=== PATIENT | male | born 1985 | race Caucasian/White ===

== ENCOUNTER 2016-09-29 20:43 | Emergency (ER) | payer SELFPAY ==
--- NOTE | 2016-09-29 21:08 | ED Physician Documentation ---
General Adult - HISTORIAN Historian: patient - HPI Stated Complaint: pink eye Chief Complaint: General Adult Onset: hours Timing: still present Severity: moderate Further Comments: yes (Pt is a 30 yo male with L eye redness. Pt says he left his contact lenses in for more than a week. He developed L eye redness today. Eye is irritated and itchy, he says. No increase pain with looking into light.) - ROS CONST: no problems EYES/ENT: other (L eye redness/irritation) CVS/RESP: none GI/: none MS/SKIN/LYMPH: none - PAST HX Past History: none Other History: none Allergies/Adverse Reactions: Allergies Allergy/AdvReac Type Severity Reaction Status Date / Time codeine Allergy Severe Tremors Verified 09/29/16 21:32 - SOCIAL HX Smoking History: cigarettes - FAMILY HX Family History: No - VITAL SIGNS Vital Signs: Vital Signs Temp Pulse Resp BP Pulse Ox 135/87 12/14/15 22:42 - REVIEWED ASSESSMENTS Nursing Assessment Reviewed: Yes Vitals Reviewed: Yes Progress - Progress Progress: Rx Gentamicin 0.3% ophthalmic. 1-2 drops in both eyes three times daily. 1st dose in ER. ED Results Lab/Radiology - Orders Orders: ED Orders Category Date Time Status Tobramycin Med 09/29/16 21:06 Once 1 ml OP QD ONE General Adult Physical Exam - PHYSICAL EXAM GENERAL APPEARANCE: mild distress EENT: other (L conjunctival injection; PERRLA) RESPIRATORY: no resp distress SKIN: warm/dry, normal color EXTREMITIES: normal range of motion NEURO: oriented X3 Discharge Clincal Impression: Conjunctivitis Qualifiers: Conjunctivitis type: acute Acute conjunctivitis type: unspecified Laterality: left Qualified Code(s): H10.32 - Unspecified acute conjunctivitis, left eye Referrals: Primary Doctor,No [Primary Care Provider] - Condition: Good Disposition: 01 HOME, SELF-CARE Decision to Admit: NO Decision Time: 21:30
[2016-09-29] MEDS ORDERED: PHARMACY KEY 1 EACH EACH MC ONE (21:34)
[2016-09-29] MEDS ORDERED: GENTAMICIN SULFATE 0.3% OPTH SOL OP ONE (21:38)
[2016-09-29] MEDS: TOBRAMYCIN OP ONE ×2 (21:41→21:43)
[2016-09-29 22:53] VITALS: BP 145/87
== END 2016-09-29 21:48 | disposition home or self-care (01) ==
LOC: ED 20:43
DX: H10.32 Unspecified acute conjunctivitis, left eye (principal)
CPT/HCPCS: 99282

== ENCOUNTER 2016-10-02 19:09 | Emergency (ER) | payer SELFPAY ==
[2016-10-02 19:30] VITALS: BP 141/88
[2016-10-02] MEDS ORDERED: POLYMYXIN B SULF/TRIMETHOPRIM OPHTHALMIC DROPS OP ONE (19:41)
--- NOTE | 2016-10-02 19:50 | ED Physician Documentation ---
Eye Problem - HISTORIAN Historian: patient - HPI Stated Complaint: left eye pain Chief Complaint: Eye Problems Additional Information: Seen in ER 09/29 with conjunctivitis OS; started Gentamycin 0.3%ophth gtts. Better for 24 hours, then left eye became more painful. No change in vision. Associated symptoms: burining, itching, redness Apparent Injury: no - ROS CONST: no problems - PAST HX Past History: none Allergies/Adverse Reactions: Allergies Allergy/AdvReac Type Severity Reaction Status Date / Time codeine Allergy Severe Tremors Verified 10/02/16 19:24 Home Medications: Ambulatory Orders Medication Instructions Recorded NK [NK] 10/02/16 - SOCIAL HX Smoking History: non-smoker - FAMILY HX Family History: no significant history - VITAL SIGNS Vital Signs: Vital Signs Temp Pulse Resp BP Pulse Ox 98.2 F 93 H 16 141/88 97 10/02/16 19:10 10/02/16 19:10 10/02/16 19:10 10/02/16 19:10 10/02/16 19:10 - REVIEWED ASSESSMENTS Nursing Assessment Reviewed: Yes Vitals Reviewed: Yes ED Results Lab/Radiology - Orders Orders: ED Orders Category Date Time Status Polymyxin B Sulf/Trimethoprim [Polytrim] Med 10/02/16 19:41 Once 3 drop OP NOW ONE Eye Problem Physical Exam - Physical Exam General Appearance: alert, mild distress Examined with Slit Lamp: No Eyelids: nml inspection. No: foreign body under eyelid (R), foreign body under eyelid (L) Conjunctiva and Sclera: injected (L) Corneas: nml inspection EOM: intact Pupils: equal Head/ENT: nml inspection. No: swelling Skin: nml color, warm, skin intact Neck/Back: nml inspection Respiratory: no resp distress Neuro/Psych: neuro intact Discharge Clincal Impression: Conjunctivitis Qualifiers: Conjunctivitis type: other mucopurulent Laterality: left Qualified Code(s): H10.022 - Other mucopurulent conjunctivitis, left eye Additional Instructions: Stop the gentamycin eye drops. If you are not better in 36 hours, return to the ER or see your provider. Home Medications: Ambulatory Orders NK [NK] 10/02/16 Condition: Good Disposition: HOME, SELF-CARE Decision to Admit: NO Decision Time: 19:55
== END 2016-10-02 20:07 | disposition home or self-care (01) ==
LOC: ED 19:09
DX: H10.022 Other mucopurulent conjunctivitis, left eye (principal)
CPT/HCPCS: 99282

== ENCOUNTER 2016-10-24 22:55 | Emergency (ER) | payer SELFPAY ==
[2016-10-24 23:12] VITALS: BP 129/85
--- NOTE | 2016-10-24 23:16 | ED Physician Documentation ---
General Adult - HISTORIAN Historian: patient - HPI Stated Complaint: Noticed swelling/mass to base of penile shaft Chief Complaint: Male Urogenital Problems Additional Information: 30 yo M here for 3-4 days swelling at the base of penis, superior scrotum. States no penile discharge, ulcers. No STD history. No new partners. Is homosexual and participates in anal intercourse. No f/c/n/v. States seems to have happened after shaving a few days ago. No diff with urination, BM. No dysuria, hematuria All other systems reviewed and negative. Onset: days ago - ROS CONST: no problems EYES/ENT: none CVS/RESP: none GI/: other (penile, scrotal swelling. ) MS/SKIN/LYMPH: none NEURO/PSYCH: denies: headache - PAST HX Past History: none Other History: none Surgeries/Procedures: none Immunizations: UTD Allergies/Adverse Reactions: Allergies Allergy/AdvReac Type Severity Reaction Status Date / Time No Known Allergies Allergy Verified 10/24/16 23:14 Home Medications: Ambulatory Orders Medication Instructions Recorded NK [NK] 10/02/16 - SOCIAL HX Smoking History: non-smoker Alcohol Use: none Drug Use: none - FAMILY HX Family History: No - VITAL SIGNS Vital Signs: Vital Signs Temp Pulse Resp BP Pulse Ox 98.5 F 90 18 129/85 96 10/24/16 22:56 10/24/16 22:56 10/24/16 22:56 10/24/16 22:56 10/24/16 22:56 - REVIEWED ASSESSMENTS Nursing Assessment Reviewed: Yes Vitals Reviewed: Yes General Adult Physical Exam - PHYSICAL EXAM GENERAL APPEARANCE: no distress EENT: ENT inspection normal, pharynx normal, TM's nml NECK: normal inspection. No: lymphadenopathy RESPIRATORY: no resp distress, chest non-tender, breath sounds normal CVS: reg rate & rhythm, heart sounds normal, equal pulses, no murmur ABDOMEN: soft, no organomegaly, normal bowel sounds, no distension, non-tender, other (there is mild swelling and erythema at the superior scrotum where it meets the penile shaft. There is an area of induration with some desquamation appearing as it might have been draining but no current fluctuance. No penile lesions, discharge. No hernia. ). No: tenderness EXTREMITIES: non-tender, no evidence of injury NEURO: oriented X3 Discharge Clincal Impression: Cellulitis Qualifiers: Site of cellulitis: trunk Site of cellulitis of trunk: groin Qualified Code(s) : L03.314 - Cellulitis of groin Referrals: Primary Doctor,No [Primary Care Provider] - 2 Days Home Medications: Ambulatory Orders NK [NK] 10/02/16 Comments: mild cellulitis in scrotal region, likely from ingrown hair 2/2 shaving. No h/o DM. No fluctuance or drainable abscess. Condition: Good Disposition: 01 HOME, SELF-CARE Decision to Admit: NO Decision Time: 23:19
== END 2016-10-24 23:30 | disposition home or self-care (01) ==
LOC: ED 22:55
DX: L03.314 Cellulitis of groin (principal)
CPT/HCPCS: 99283

== ENCOUNTER 2016-12-18 20:48 | Emergency (ER) | payer SELFPAY ==
[2016-12-18] MEDS ORDERED: IPRATROPIUM/ALBUTEROL SULFATE 3 ML AMPUL.NEB NEB ONE ×2 (21:03→21:07)
--- NOTE | 2016-12-18 21:10 | ED Physician Documentation ---
Upper Respiratory Symptoms - HISTORIAN Historian: patient - HPI Chief Complaint: Cough/ Upper Respiratory Additional Information: x3 days with chills, stuffy nose, diff breathing, exersional dyspnea. taking mucinex Onset: days ago Duration: constant Context: denies: recent foreign travel, multiple patients Severity: mild Associated Symptoms: chills, sweating, runny nose, sinus drainage, shortness of breath, hurts to breathe Worsened by Deep Breath: Yes Further Comments: no - ROS CONST/EYES: denies: weakness CVS/RESP: shortness of breath LYMPH: denies: leg swelling GI/: none NEURO/PSYCH: denies: fainting, dizziness MS/SKIN: denies: joint pain - PAST HX Lung Disease: none PE Risk Factors: none Surgeries/Procedures: none Immunizations: UTD Allergies/Adverse Reactions: Allergies Allergy/AdvReac Type Severity Reaction Status Date / Time No Known Allergies Allergy Verified 12/18/16 21:00 Home Medications: Ambulatory Orders Medication Instructions Recorded Omeprazole [Prilosec] 20 mg PO DAILY 12/18/16 - SOCIAL HX Smoking History: non-smoker Alcohol Use: none Drug Use: none - FAMILY HX Family History: none - VITAL SIGNS Vital Signs: Vital Signs Temp Pulse Resp BP Pulse Ox 98.9 F 92 H 24 136/66 92 12/18/16 21:01 12/18/16 21:01 12/18/16 21:01 12/18/16 21:01 12/18/16 21:01 - REVIEWED ASSESSMENTS Nursing Assessment Reviewed: Yes Vitals Reviewed: Yes ED Results Lab/Radiology - Radiology Radiology Impressions: cxr neg - Orders Orders: ED Orders Category Date Time Status CHEST 2 VIEW [CHEST P.A.&LAT 2 VIEWS] [RAD] Stat Exams 12/18/16 21:08 Taken Ipratropium/Albuterol Sulfate [Duoneb] Med 12/18/16 21:03 Discontinued 3 ml NEB .STK-MED ONE Ipratropium/Albuterol Sulfate [Duoneb] Med 12/18/16 21:07 Discontinued 3 ml NEB NOW ONE Upper Respiratory Symptoms - EXAM General Appearance: no acute distress, alert EENT: nml ENT inspection, pharynx nml. No: pharyngeal erythema Neck: normal inspection Respiratory: no resp. distress, wheezes. No: prolonged expirations, accessory muscle use Abdomen: non-tender CVS: reg rate & rhythm Skin: color nml, no rash Extremities: non-tender Neuro/Psych: oriented x3, mood/affect nml Discharge Clincal Impression: URI (upper respiratory infection) Qualifiers: URI type: unspecified URI Qualified Code(s): J06.9 - Acute upper respiratory infection, unspecified Home Medications: Ambulatory Orders Omeprazole [Prilosec] 20 mg PO DAILY 12/18/16 Condition: Good Disposition: 01 HOME, SELF-CARE Decision to Admit: NO Date of Decison to Admit: 12/18/16 Decision Time: 21:38
[2016-12-18 21:15] VITALS: BP 136/66
[2016-12-18] MEDS ORDERED: Lidocaine 1% 5ml(IM or SUTURE)(PAIN CLINIC) ONE (21:46)
[2016-12-18] MEDS ORDERED: cefTRIAXone SODIUM 1 GM VIAL ONE (21:46)
--- NOTE | 2016-12-19 06:38 | Diagnostic Imaging Report ---
~ Report Submission Date: Dec 18, 2016 9:28:31 PM CDT Patient ~ Study Name: JUSTINA BARBOSA ~ Date: Dec 18, 2016 9:16:16 PM CDT ~ Modality Type: CR Gender: M ~ Description: CHEST : 87 ~ Institution: [facility] Physician: TALAT DELUNA ~ ~ ~ ~ Chest, PA and lateral History: Cough Findings: No infiltrate, effusion or pneumothorax is present. Heart size, mediastinum and pulmonary vascularity are normal. Since 17 April 2015, no significant change has occurred. Impression: No active disease. ~ Electronically signed on Dec 18, 2016 9:28:31 PM CDT by: Christopher DARDEN
== END 2016-12-18 21:57 | disposition home or self-care (01) ==
LOC: ED 20:48
DX: J06.9 Acute upper respiratory infection, unspecified (principal)
CPT/HCPCS: 71020; J0696; 96372; 99283

== ENCOUNTER 2017-03-17 01:10 | Emergency (ER) | payer SELFPAY ==
[2017-03-17] MEDS: 0.9 % SODIUM CHLORIDE 1,000 ML IV ONE (01:25)
[2017-03-17] MEDS: KETOROLAC TROMETHAMINE 30 MG/1ML VIAL IVP ONE (01:25)
[2017-03-17] MEDS: ONDANSETRON HCL/PF 4 MG/ 2ML VIAL IVP ONE (01:25)
[2017-03-17 01:34] LABS: BASOPHILS % 0.6 (0.0-1.5); MEAN CORPUSCULAR HEMOGLOBIN 31.7 pg (28.0-34.0); MEAN CORPUSCULAR VOLUME 91.2 fl (80.0-100.0)
[2017-03-17] MEDS ORDERED: fentaNYL CITRATE/PF 100 MCG/ 2ML AMP ONE (01:46)
[2017-03-17 01:47] LABS: eGFR (African) > 60; eGFR (Non-African) > 60
[2017-03-17] MEDS: fentaNYL CITRATE/PF 100 MCG/ 2ML AMP IVP ONE (01:50)
--- NOTE | 2017-03-17 01:53 | ED Physician Documentation ---
Abdominal Pain - HISTORIAN Historian: patient - HPI Stated Complaint: right flank pain Chief Complaint: Abdominal Pain Onset: days ago (3) Timing: worse Context: denies: out of country travel, bad food, recent trauma Severity: severe Quality: pain Associated Symptoms: fever, nausea, vomiting. denies: diarrhea Exacerbated by: nothing Relieved by: nothing Further Comments: yes (31 year old male patient presents with 3 day history of abdominal pain with nausea, vomiting, fever and chills. Reports pain is worse in right middle quad.) - ROS CONST: no problems GI/: none CVS/RESP: none EYES/ENT: none MS/SKIN/LYMPH: none NEURO/PSYCH: none - SOCIAL HX Smoking History: cigarettes - FAMILY HX Family History: denies: none - PAST HX Past History: none Ischemic Bowel Risk Factors: none Other History: none Home Medications: Ambulatory Orders Medication Instructions Recorded NK [NK] 03/17/17 Allergies/Adverse Reactions: Allergies Allergy/AdvReac Type Severity Reaction Status Date / Time codeine Allergy Severe Throat Verified 03/17/17 01:41 Swelling - VITAL SIGNS Vital Signs: Vital Signs Temp Pulse Resp BP Pulse Ox 100.8 F H 91 H 16 137/72 96 03/17/17 01:10 03/17/17 01:10 03/17/17 01:10 03/17/17 01:10 03/17/17 01:10 - REVIEWED ASSESSMENTS Nursing Assessment Reviewed: Yes Vitals Reviewed: Yes Progress - Progress Progress: BM yesterday Lipase and lactate send out, will defer at this time. ED Results Lab/Radiology - Lab Results Lab Results: Lab Results 03/17/17 01:25 Sodium 138 mmol/L mmol/L (136-145) Potassium 3.9 mmol/L mmol/L (3.5-5.0) Chloride 100 mmol/L mmol/L (98-110) Carbon Dioxide 24 mmol/L mmol/L (20-32) BUN 16 mg/dL mg/dL (10-26) Creatinine 1.0 mg/dL mg/dL (0.4-1.5) Estimated Creat Clear 18 Est GFR ( Amer) > 60 (60 - ) Est GFR (Non-Af Amer) > 60 (60 - ) Glucose 116 mg/dL H mg/dL (70-99) Calcium 9.7 mg/dL mg/dL (8.5-10.5) Total Bilirubin 0.3 mg/dL mg/dL (0.2-1.2) AST 26 U/L U/L (0-41) ALT 35 U/L U/L (0-45) Alkaline Phosphatase 59 U/L U/L (46-116) Total Protein 7.1 g/dL g/dL (6.0-8.5) Albumin 4.9 g/dL g/dL (3.0-5.5) - Radiology Radiology Impressions: CT of the abdomen and pelvis without contrast Clinical history: Abdominal and right flank pain. Technique: CT of the abdomen and pelvis is performed without oral or intravenous administration of contrast. Sagittal and coronal reconstructions are performed by the technologist. Findings: The visualized lung bases are clear. Liver and spleen demonstrate normal attenuation without focal defect. The gallbladder is contracted. There is no pancreatic or adrenal abnormality. The kidneys are of normal size, shape and position. There are small retroperitoneal nodes but no significant adenopathy. The appendix is visualized and is within normal limits. The bladder is unremarkable. There is no evident bladder or ureteral calculus and no hydronephrosis. Impression: 1. Negative noncontrast study. - Orders Orders: ED Orders Category Date Time Status CT ABD & PELVIS W/O CON Stat Exams 03/17/17 Taken CBC/PLATELET/DIFF Stat Lab 03/17/17 01:25 Received CMP Stat Lab 03/17/17 01:25 Completed UA W/MICRO IF INDICATED Stat Lab 03/17/17 01:22 Ordered 0.9 % Sodium Chloride [Normal Saline] 1,000 ml Med 03/17/17 01:22 Discontinued IV NOW Ketorolac Tromethamine [Toradol] Med 03/17/17 01:22 Discontinued 30 mg IVP NOW ONE Ondansetron HCl/Pf [Zofran 4 mg/2 ml] Med 03/17/17 01:22 Discontinued 4 mg IVP NOW ONE fentaNYL CITRATE/PF [Duragesic] Med 03/17/17 01:46 Discontinued 100 mcg .ROUTE .STK-MED ONE fentaNYL CITRATE/PF [Duragesic] Med 03/17/17 01:46 Discontinued 50 mcg IVP NOW ONE Abdominal Pain Physical Exam - Physical Exam General Appearance: moderate distress EENT: eye inspection normal, JARRET RESPIRATORY: no resp distress, chest non-tender, breath sounds normal CVS: reg rate & rhythm, heart sounds normal, equal pulses, no murmur, no gallop , PMI nml, no JVD, no friction rub, 24 ABDOMEN: soft, no organomegaly, normal bowel sounds, no abdominal bruit, decreased BS (right quads), McBurney's point tenderne, distended (left lower and upper quad), other (positive Woodard's ) SKIN: normal color, warm/dry, NR, INT, PAL, DR EXTREMITIES: non-tender, normal range of motion, no evidence of injury, no edema , J, 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 X3, CN's nml as tested, motor nml, sensation nml Vital Signs: Vital Signs Temp Pulse Resp BP Pulse Ox 100.8 F H 91 H 16 137/72 96 03/17/17 01:10 03/17/17 01:10 03/17/17 01:10 03/17/17 01:10 03/17/17 01:10 Discharge Clincal Impression: Abdominal pain Qualifiers: Abdominal location: right lower quadrant Qualified Code(s): R10.31 - Right lower quadrant pain Nausea & vomiting Qualifiers: Vomiting type: unspecified Vomiting Intractability: non-intractable Qualified Code(s): R11.2 - Nausea with vomiting, unspecified Constipation Qualifiers: Constipation type: unspecified constipation type Qualified Code(s): K59.00 - Constipation, unspecified Referrals: [Primary Care Provider] - 2 Days Additional Instructions: Diet: Clear liquids Sprite/7-up Juices apple, white grape Gatorade/Powerade Jello Popsicles When tolerating clear liquids, advance to bland diet - such as crackers , rice, bananas or toast Return to the emergency department or call your doctor, if you are having severe abdominal pain, fever >101.0, or if there is blood in the vomit or diarrhea, or you cannot keep down liquids or solid food. Fever: Use Tylenol or Ibuprofen as needed per package directions Tylenol 500mg po q4h prn pain Ibuprofen 800mg po TID prn pain - do not take for more than 4 days. Home Medications: Ambulatory Orders NK [NK] 03/17/17 Condition: Stable Disposition: 01 HOME, SELF-CARE Decision to Admit: NO Decision Time: 02:12
--- NOTE | 2017-03-17 02:07 | Diagnostic Imaging Report ---
DEENA ADAME (DEUCE) - ER [facility] [address] [facility] [address] [place], [place]. [address] Report Submission Date: Mar 17, 2017 2:05:23 AM CDT Patient Study Name: JUSTINA BARBOSA Date: Mar 17, 2017 1:48:28 AM CDT Modality Type: CT\SR Gender: M Description: CT ABD & PELVIS W/O CO : 89 Institution: [facility] Physician: DEENA ADAME) - ER CT of the abdomen and pelvis without contrast Clinical history: Abdominal and right flank pain. Technique: CT of the abdomen and pelvis is performed without oral or intravenous administration of contrast. Sagittal and coronal reconstructions are performed by the technologist. Findings: The visualized lung bases are clear. Liver and spleen demonstrate normal attenuation without focal defect. The gallbladder is contracted. There is no pancreatic or adrenal abnormality. The kidneys are of normal size, shape and position. There are small retroperitoneal nodes but no significant adenopathy. The appendix is visualized and is within normal limits. The bladder is unremarkable. There is no evident bladder or ureteral calculus and no hydronephrosis. Impression: 1. Negative noncontrast study. Electronically signed on Mar 17, 2017 2:05:23 AM CDT by: Lucien DARDEN
[2017-03-17] MEDS: MAGNESIUM HYDROXIDE 400 MG/5 ML 30ML UDC PO ONE (02:17)
[2017-03-17 02:29] VITALS: BP 106/59
[2017-03-17 04:32] LABS: EOSINOPHILS % 2.4 % (0.0-6.8); MONOCYTES % 4.7 % (0.0-11.0); NEUTROPHILS # 5.3 # k/uL (1.4-7.7)
[2017-03-17 06:01] LABS: APPEARANCE,URINE CLEAR (CLEAR); COLOR,URINE YELLOW (YELLOW); OCCULT BLOOD,URINE NEGATIVE (NEGATIVE); PH URINE 5.5 (5.0 - 8.0); UROBILINOGEN URINE 0.2 Eu (0.2-1.0)
== END 2017-03-17 02:20 | disposition home or self-care (01) ==
LOC: ED 01:10
DX: R10.31 Right lower quadrant pain (principal); R11.2 Nausea with vomiting, unspecified; K59.00 Constipation, unspecified
CPT/HCPCS: 74176; 80053; 81002; 85025; J1885; J2405; J3010; J7030; 96361; 96374; 96375; 99283; S1016

== ENCOUNTER 2017-06-07 15:17 | Emergency (ER) | payer OTHER ==
--- NOTE | 2017-06-07 15:34 | ED Physician Documentation ---
General Adult - HISTORIAN Historian: patient - HPI Stated Complaint: left third finger injury Chief Complaint: General Adult Onset: minutes Timing: still present Severity: moderate Further Comments: yes (Pt is a 31 yo male with injury to his L middle finger. Closed car door on finger last evening.) - ROS CONST: no problems EYES/ENT: none CVS/RESP: none GI/: none MS/SKIN/LYMPH: other (tenderness, swelling L middle finger) - PAST HX Past History: none Other History: none Allergies/Adverse Reactions: Allergies Allergy/AdvReac Type Severity Reaction Status Date / Time codeine Allergy Severe Throat Verified 03/17/17 01:41 Swelling Home Medications: Ambulatory Orders Medication Instructions Recorded NK [NK] 06/07/17 - SOCIAL HX Smoking History: cigarettes - FAMILY HX Family History: No - VITAL SIGNS Vital Signs: Vital Signs Temp Pulse Resp BP Pulse Ox 98.6 F 91 H 20 148/77 96 06/07/17 15:17 06/07/17 15:17 06/07/17 15:17 06/07/17 15:17 06/07/17 15:17 - REVIEWED ASSESSMENTS Nursing Assessment Reviewed: Yes Vitals Reviewed: Yes Progress - Progress Progress: X-ray L middle finger: no fracture seen. ED Results Lab/Radiology - Orders Orders: ED Orders Category Date Time Status FINGER 2 VIEWS OR MORE [RAD] Stat Exams 06/07/17 Ordered General Adult Physical Exam - PHYSICAL EXAM GENERAL APPEARANCE: mild distress NECK: normal inspection, supple RESPIRATORY: no resp distress, chest non-tender CVS: reg rate & rhythm, heart sounds normal BACK: normal inspection SKIN: other (tenderness, swelling L middle finger; FROM) EXTREMITIES: other (tenderness, swelling L middle finger; FROM) NEURO: oriented X3, motor nml, sensation nml Discharge Clincal Impression: contusion L middle finger Referrals: WILLIAM LEUNG [Primary Care Provider] - 2 Days Condition: Good Disposition: 01 HOME, SELF-CARE Decision to Admit: NO Decision Time: 16:01
[2017-06-07 15:40] VITALS: BP 148/77
--- NOTE | 2017-06-07 16:17 | Diagnostic Imaging Report ---
LEIF GARCIA~ [facility] [id number] [facility] [address] [address] ~ ~ ~ ~ Report Submission Date: Jun 07, 2017 4:02:38 PM CDT Patient ~ Study Name: JUSTINA BARBOSA ~ Date: Jun 07, 2017 3:37:00 PM CDT ~ Modality Type: CR Gender: M ~ Description: UPPER EXTREMITY : 89 ~ Institution: [facility] Physician: LEIF GARCIA ~ ~ ~ ~ Examination: Plain film finger History: Injury Comparison exams: None available Findings: 3 views the finger demonstrate normal cortical margins. No fracture.~ No dislocation. No soft tissue abnormality. Impression: No acute osseous abnormality . ~ Electronically signed on Jun 07, 2017 4:02:38 PM CDT by: Tony DARDEN
== END 2017-06-07 16:05 | disposition home or self-care (01) ==
LOC: ED 15:17
DX: S60.032A Contusion of left middle finger without damage to nail, initial encounter (principal); X58.XXXA Exposure to other specified factors, initial encounter; Y93.9 Activity, unspecified; Y99.9 Unspecified external cause status
CPT/HCPCS: 73140

== ENCOUNTER 2017-09-17 18:50 | Emergency (ER) | payer SELFPAY ==
--- NOTE | 2017-09-17 19:02 | ED Physician Documentation ---
General Adult - HISTORIAN Historian: patient - HPI Stated Complaint: hand injury at work Chief Complaint: Hand Injury Onset: hours (1) Timing: still present Severity: moderate Further Comments: yes (States his index finger of right hand was smashed in between to metal poles at work. He had on work gloves. The gloves were not broken. the area is painful .) Last known Well Code/Unknown Code: Unknown - ROS CONST: no problems - PAST HX Past History: none Other History: none Surgeries/Procedures: none Immunizations: referred to PCP Allergies/Adverse Reactions: Allergies Allergy/AdvReac Type Severity Reaction Status Date / Time codeine Allergy Severe Throat Verified 09/17/17 20:05 Swelling Home Medications: Ambulatory Orders Medication Instructions Recorded NK [NK] 06/07/17 - SOCIAL HX Smoking History: non-smoker Alcohol Use: none Drug Use: none - FAMILY HX Family History: No - VITAL SIGNS Vital Signs: Vital Signs Temp Pulse Resp BP Pulse Ox 98.2 F 91 H 16 132/85 97 09/17/17 18:50 09/17/17 18:50 09/17/17 18:50 09/17/17 18:50 09/17/17 18:50 - REVIEWED ASSESSMENTS Nursing Assessment Reviewed: Yes Vitals Reviewed: Yes Procedures Wound Location: upper extremity (right hand finger ) Wound's Depth, Shape: superficial Wound Explored: no foreign body removed Anesthesia: 2% Lidocaine Wound Debrided: moderate Wound Repaired With: sutures Suture Size/Type: 4:0 Layer Closure?: No Progress - Progress Progress: 2030: Discussed case with Dr Garner ([facility] he stated we could close wound with sutures. No need for prophylactic antibiotics if no debris. Appt with follow up plastics is Sunday09.21.2017 @[address] Herman. Keep finger clean and dry and immobilizedDG. ED Results Lab/Radiology - Orders Orders: ED Orders Category Date Time Status Cleanse with NS and Chlorhexid 1T Care 09/17/17 19:21 Active HAND 3 VIEWS OR MORE [RAD] Stat Exams 09/17/17 Ordered fentaNYL CITRATE/PF [Duragesic] Med 09/17/17 19:03 Discontinued 50 mcg IM NOW ONE General Adult Physical Exam - PHYSICAL EXAM GENERAL APPEARANCE: no distress EENT: eye inspection normal NECK: normal inspection RESPIRATORY: no resp distress, chest non-tender, breath sounds normal CVS: reg rate & rhythm, heart sounds normal, no murmur SKIN: warm/dry, normal color, other (right hand index finger 2 cm area laceration on lateral side of index finger. FROM. Pulses on hand + sensation + cap refill +) EXTREMITIES: non-tender NEURO: oriented X3, CN's nml as tested, motor nml, sensation nml, mood/affect nml Discharge Clincal Impression: Laceration Referrals: Primary Doctor,No [Primary Care Provider] - 2 Days Comments: Keep area clean and dry Keep finger immoblized Follow up with Dr Herman Sunday09.21.2017 @ 0969 [facility] Report to front office help and state here for Plastics appt with Dr Herman Phone Ibuprofen or Tylenol for pain Return to ER for any concerning symptoms Condition: Stable Disposition: 01 HOME, SELF-CARE Decision to Admit: NO Date of Decison to Admit: 09/17/17 Decision Time: 21:04
[2017-09-17] MEDS ORDERED: fentaNYL CITRATE/PF 100 MCG/ 2ML AMP IM ONE (19:03)
[2017-09-17] MEDS ORDERED: Lidocaine 2% 20ml Vial IP ONE (21:10)
[2017-09-17 21:43] VITALS: BP 129/81
--- NOTE | 2017-09-18 06:07 | Diagnostic Imaging Report ---
PAULA SHIELDS [facility] [address] [facility] [address] 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 Surgical screw at the right 5th the ip joint Impression: 1. 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
== END 2017-09-17 21:07 | disposition home or self-care (01) ==
LOC: ED 18:50
DX: S61.210A Laceration without foreign body of right index finger without damage to nail, initial encounter (principal); W23.1XXA Caught, crushed, jammed, or pinched between stationary objects, initial encounter; Y93.89 Activity, other specified; Y92.9 Unspecified place or not applicable; Y99.0 Civilian activity done for income or pay
CPT/HCPCS: 12001; 73130; 96372; 99283; J3010

== ENCOUNTER 2017-12-13 17:19 | Emergency (ER) | payer SELFPAY ==
--- NOTE | 2017-12-13 17:22 | ED Physician Documentation ---
Nausea/Vomiting/Diarrhea - HISTORIAN Historian: patient - HPI Stated Complaint: N/V/D Chief Complaint: Nausea,Vomiting,Diarrhea Onset: days ago (1) Duration: constant Last known Well Date: 12/11/17 Last Known Well Time: 23:00 Last known Well Code/Unknown Code: Unknown Timing: sudden onset Context: bad food Severity: moderate Further Comments: yes (He states he and his friend both ate at about 3 am x 2 days ago. they have both had n/v/d since. He states he has had 10 diarrhea stools today and 5 episodes of vomiting. No fever.) - Associated Symptoms Vomiting: frequent. denies: bloody, blood-streaked Diarrhea: copious. denies: mucous, bloody, blood-streaked Abdominal Pain: none - ROS CONST: none CVS/RESP: denies: chest pain, shortness of breath, cough GI/: denies: constipation, bloody urine, bloody stools, dark urine EYES/ENT: none MS/SKIN/LYMPH: denies: rash - PAST HX Past History: none Surgeries/Procedures: none Immunizations: UTD Allergies/Adverse Reactions: Allergies Allergy/AdvReac Type Severity Reaction Status Date / Time codeine Allergy Severe Throat Verified 12/13/17 17:38 Swelling Home Medications: Ambulatory Orders Medication Instructions Recorded NK [NK] 12/13/17 - SOCIAL HX Smoking History: non-smoker Alcohol Use: none Drug Use: none - FAMILY HX Family History: none - VITAL SIGNS Vital Signs: Vital Signs Temp Pulse Resp BP Pulse Ox 98.2 F 88 16 132/77 98 12/13/17 17:19 12/13/17 17:19 12/13/17 17:19 12/13/17 17:19 12/13/17 17:19 - REVIEWED ASSESSMENTS Nursing Assessment Reviewed: Yes Vitals Reviewed: Yes ED Results Lab/Radiology - Lab Results Lab Results: Lab Results 12/13/17 12/13/17 18:10 18:10 WBC 9.70 K/ul K/ul (4.00-12.00) RBC 4.95 M/ul M/ul (3.90-5.20) Hgb 15.6 g/dL g/dL (12.0-18.0) Hct 46.0 % % (37.0-53.0) MCV 93.0 fl fl (80.0-100.0) MCH 31.5 pg pg (28.0-34.0) MCHC 33.9 g/dL g/dL (30.0-36.0) RDW 12.8 % % (11.3-14.3) Plt Count 190 K/mm3 K/mm3 (130-400) Neut % (Auto) 72.1 % % (39.0-79.0) Lymph % (Auto) 18.8 % % (16.0-50.0) [place] % (Auto) 4.1 % % (0.0-11.0) Eos % (Auto) 3.1 % % (0.0-6.8) Baso % (Auto) 0.3 (0.0-1.5) Neut # (Auto) 7.0 # k/uL # k/uL (1.4-7.7) Lymph # (Auto) 1.8 # k/uL # k/uL (0.6-4.0) [place] # (Auto) 0.4 # k/uL # k/uL (0.0-0.9) Eos # (Auto) 0.3 # k/uL # k/uL (0.0-0.6) Baso # (Auto) 0.0 # k/uL # k/uL (0.0-0.5) Reactive Lymphs % 1.6 % % (0.0-5.0) Reactive Lymphs # 0.2 # k/uL # k/uL (0.0-0.8) Sodium 141 mmol/L mmol/L (136-145) Potassium 4.0 mmol/L mmol/L (3.5-5.1) Chloride 104 mmol/L mmol/L (98-107) Carbon Dioxide 23 mmol/L mmol/L (22-30) BUN 15 mg/dL mg/dL (9-20) Creatinine 0.80 mg/dL mg/dL (0.66-1.25) Estimated Creat Clear 218 Est GFR ( Amer) > 60 (60 - ) Est GFR (Non-Af Amer) > 60 (60 - ) Glucose 88 mg/dL mg/dL (74-106) Calcium 9.3 mg/dL mg/dL (8.4-10.2) Total Bilirubin 0.6 mg/dL mg/dL (0.2-1.3) AST 23 U/L U/L (15-46) ALT 46 U/L U/L (13-69) Alkaline Phosphatase 57 U/L U/L (38-126) Total Protein 7.2 g/dL g/dL (6.3-8.2) Albumin 4.4 g/dL g/dL (3.5-5.0) - Orders Orders: ED Orders Category Date Time Status Place IV Lock 1T Care 12/13/17 17:41 Active CBC/PLATELET/DIFF Stat Lab 12/13/17 18:10 Completed CMP Stat Lab 12/13/17 18:10 Completed 0.9 % Sodium Chloride [Normal Saline] 1,000 ml Med 12/13/17 17:41 Active IV Q1H Ondansetron HCl/Pf [Zofran 4 mg/2 ml] Med 12/13/17 17:41 Discontinued 4 mg IVP NOW ONE Nausea Physical Exam - EXAM General Appearance: no acute distress, alert EENT: eye inspection normal Neck: normal inspection Respiratory: no resp distress, chest non-tender, breath sounds normal CVS: reg rate & rhythm, heart sounds normal, equal pulses, no murmur Abdomen: non-tender, no organomegaly. No: guarding, rebound Back: non-tender Skin: warm/dry, normal color Extremities: non-tender, normal range of motion, no evidence of injury, no edema Neuro/Psych: oriented X3, CN's nml as tested, motor nml, sensation nml, mood/ affect nml, cognition normal Discharge Clincal Impression: Nausea & vomiting Qualifiers: Vomiting type: unspecified Vomiting Intractability: non-intractable Qualified Code(s): R11.2 - Nausea with vomiting, unspecified Referrals: Primary Doctor,No [REFERRING] - 2 Days Additional Instructions: 1. [place] diet advance as tolerated 2. Zofran 4 mg take 1 by mouth every 8 hours as needed for nausea 3. Follow up with PCP if no improvement in 48 hours 4. Return to ER for increase in symptoms , decrease in urination, fever, abdominal pain Condition: Stable Disposition: 01 HOME, SELF-CARE Decision to Admit: NO Date of Decison to Admit: 12/13/17 Decision Time: 18:37
[2017-12-13] MEDS ORDERED: 0.9 % SODIUM CHLORIDE 1,000 ML IV ONE (17:41)
[2017-12-13] MEDS ORDERED: ONDANSETRON HCL/PF 4 MG/ 2ML VIAL IVP ONE (17:41)
[2017-12-13 18:30] LABS: BASOPHILS % 0.3 (0.0-1.5); EOSINOPHILS % 3.1 % (0.0-6.8); MEAN CORPUSCULAR HEMOGLOBIN 31.5 pg (28.0-34.0); MONOCYTES % 4.1 % (0.0-11.0)
[2017-12-13 18:35] LABS: eGFR (Non-African) > 60
[2017-12-13 18:53] VITALS: BP 134/72
== END 2017-12-13 18:35 | disposition home or self-care (01) ==
LOC: ED 17:19
DX: R11.2 Nausea with vomiting, unspecified (principal); R19.7 Diarrhea, unspecified
CPT/HCPCS: 80053; 85025; J2405; J7030; 96365; 96375; 99283; S1016

== ENCOUNTER 2018-03-11 18:39 | Emergency (ER) | payer SELFPAY ==
--- NOTE | 2018-03-11 18:58 | ED Physician Documentation ---
General Adult - HISTORIAN Historian: patient - HPI Stated Complaint: sore throat Chief Complaint: Sore Throat Onset: days ago (3) Timing: still present Severity: mild Further Comments: yes (He states he had a fever at work today of 100.9 and he has had sore throat, headache and fever x 3 days. He states he ahs taken OTC meds regularly for fever and headache. He has a sore throat and a consistent cough. No nasal drainage. No sick contacts) Last known Well Code/Unknown Code: Unknown - ROS CONST: fever EYES/ENT: sore throat CVS/RESP: cough GI/: none MS/SKIN/LYMPH: none NEURO/PSYCH: headache - PAST HX Past History: none Immunizations: UTD Allergies/Adverse Reactions: Allergies Allergy/AdvReac Type Severity Reaction Status Date / Time codeine Allergy Severe Throat Verified 03/11/18 19:01 Swelling Home Medications: Ambulatory Orders Medication Instructions Recorded NK [NK] 12/13/17 - SOCIAL HX Smoking History: non-smoker Alcohol Use: none Drug Use: none - FAMILY HX Family History: No - VITAL SIGNS Vital Signs: Vital Signs Temp Pulse Resp BP Pulse Ox 134/72 12/13/17 18:50 - REVIEWED ASSESSMENTS Nursing Assessment Reviewed: Yes Vitals Reviewed: Yes General Adult Physical Exam - PHYSICAL EXAM GENERAL APPEARANCE: no distress EENT: eye inspection normal, pharyngeal erythema, abnormal TM (right ear ) NECK: normal inspection RESPIRATORY: no resp distress, chest non-tender, breath sounds normal CVS: reg rate & rhythm, heart sounds normal, equal pulses, no murmur ABDOMEN: soft, normal bowel sounds BACK: normal inspection SKIN: warm/dry, normal color EXTREMITIES: non-tender, normal range of motion, no evidence of injury, no edema NEURO: oriented X3, CN's nml as tested, motor nml, sensation nml, mood/affect nml, cognition normal Discharge Clincal Impression: Strep throat Referrals: WILLIAM LEUNG [Primary Care Provider] - 2 Days Additional Instructions: 1. Amoxicillin 875 mg Take 1 by mouth BID x 10 days 2. Warm salt water gargles 3. Warm tea with honey 4. Tylenol or Ibuprofen as needed for pain 5. see PCP in 2-4 days if no improvement 6. Return to ER for any concerns Condition: Stable Disposition: HOME, SELF-CARE Decision to Admit: NO Date of Decison to Admit: 03/11/18 Decision Time: 19:12
[2018-03-11 19:00] VITALS: BP 127/70
== END 2018-03-11 19:20 | disposition home or self-care (01) ==
LOC: ED 18:39
DX: J02.0 Streptococcal pharyngitis (principal)
CPT/HCPCS: 87070; 87880; 99282